=== PATIENT | female | born 1990 | race Two or more races ===

== ENCOUNTER 2018-10-05 10:58 | Emergency (ER) | payer MEDICAID, OTHER ==
[~2018-10-05] VITALS: Ht 167.6 cm; Wt 81.6 kg
[2018-10-05 11:11] VITALS: BP 137/84
[2018-10-05] MEDS ORDERED: SILVER SULFADIAZINE 1 % TOPICAL CREAM 50GM TOP ONE (11:30)
[2018-10-05] MEDS ORDERED: ACETAMINOPHEN 325 MG TAB PO ONE (11:30)
== END 2018-10-05 11:50 | disposition home or self-care (01) ==
LOC: ER 10:58
DX: T22.111A Burn of first degree of right forearm, initial encounter (principal); X11.8XXA Contact with other hot tap-water, initial encounter; Y93.89 Activity, other specified; Y92.89 Other specified places as the place of occurrence of the external cause; Y99.8 Other external cause status
CPT/HCPCS: 16000

== ENCOUNTER 2021-05-25 12:37 | Emergency (ER) | payer MEDICAID ==
[~2021-05-25] VITALS: Ht 167.6 cm; Wt 70.3 kg
[2021-05-25 17:39] VITALS: BP 118/74
[2021-05-25] MEDS ORDERED: cefTRIAXone SOD 1,000 MG VL IM ONE (18:00)
[2021-05-25] MEDS ORDERED: methylPREDNISolone SOD SUCC 125 MG/2 ML VL IM ONE (18:00)
== END 2021-05-25 18:27 | disposition home or self-care (01) ==
LOC: ER 12:37
DX: J02.9 Acute pharyngitis, unspecified (principal); H66.92 Otitis media, unspecified, left ear; Z32.02 Encounter for pregnancy test, result negative; Z20.822 Contact with and (suspected) exposure to COVID-19
CPT/HCPCS: 36415; 81025; 87426; 96372; 99284; J0696; J2930

== ENCOUNTER 2022-05-01 21:24 | Emergency (ER) | payer MEDICAID ==
[~2022-05-01] VITALS: Ht 167.6 cm; Wt 72.7 kg
[2022-05-01 21:56] VITALS: BP 131/85
[2022-05-01 22:23] LABS: Urine Bacteria MANY /hpf (None Seen); Urine Blood 1+ /uL (Negative); Urine Mucus FEW (None Seen); Urine Specific Gravity 1.014 (1.001-1.035); Urine WBC 804 /hpf (0 - 5); Urine WBC Clumps PRESENT /hpf (None Seen)
[2022-05-02] MEDS ORDERED: CEPH-510 PO (01:55)
== END 2022-05-02 01:03 | disposition home or self-care (01) ==
LOC: ER 21:29
DX: N39.0 Urinary tract infection, site not specified (principal); R11.2 Nausea with vomiting, unspecified; R42 Dizziness and giddiness
CPT/HCPCS: 81001; 81025

== ENCOUNTER 2023-04-29 19:43 | Emergency (ER) | payer MEDICAID ==
[~2023-04-29] VITALS: Ht 167.6 cm; Wt 72.0 kg
[~2023-04-29 19:43] MED LIST: CEPH-510 PO
[2023-04-29 20:30] VITALS: O2SAT 100
[2023-04-29] MEDS ORDERED: SODIUM CHLORIDE 0.9% 1,000 ML IV ONE (20:30)
[2023-04-29] MEDS ORDERED: ALBUMIN 25% 100 ML IV ONE (20:30)
[2023-04-29] MEDS ORDERED: ONDANSETRON HCL 4 MG/2 ML VIAL IV ONE (20:30)
[2023-04-29] MEDS ORDERED: SODIUM CHLORIDE 0.9% 500 ML IV ONE (20:30)
[2023-04-29 20:40] LABS: Basophils # (auto) 0.1 10 ^3/uL (0-0.2); Basophils % (auto) 0.4 % (0.0-2.0); Eosinophils # (auto) 0.1 10 ^3/uL (0-0.8); Eosinophils % (auto) 0.6 % (0.0-7.0); Hematocrit 36.9 % (36.0-46.0); Hemoglobin 11.9 g/dL (12.2-16.2); Lymphocytes # (auto) 2.6 10 ^3/uL (0.4-5.4); Lymphocytes % (auto) 18.9 % (10.0-50.0); Mean Corpuscular Hemoglobin 28.5 pg (28.0-32.0); Mean Corpuscular Hgb Conc. 32.4 g/dL (32.0-36.0); Mean Corpuscular Volume 88.2 fL (80.0-100.0); Monocytes # (auto) 0.7 10 ^3/uL (0-1.3); Monocytes % (auto) 4.7 % (0.0-12.0); Neutrophils # (auto) 10.6 10 ^3/uL (1.6-8.6); Neutrophils % (auto) 75.4 % (37.0-80.0); Nucleated Red Blood Cells % 0.1 %; Red Blood Cells 4.18 10^6/uL (4.0-5.20); Red Cell Distribution Width 13.1 % (11.8-14.3)
[2023-04-29] MEDS ORDERED: fentaNYL CITRATE 100 MCG/2 ML VL IV ONE ×2 (21:00)
[2023-04-29 21:07] LABS: INR 1.08 (0.9-1.15); Prothrombin Time 11.3 sec (9.3-11.8)
[2023-04-29 21:09] LABS: Alanine Aminotransferase 21 U/L (7-40); Albumin 4.4 g/dL (3.2-4.8); Alkaline Phosphatase 68 U/L (46-116); Anion Gap 11 (5-15); Aspartate Aminotransferase 25 U/L (13-40); BUN/Creatinine Ratio 8.2 (10.0-20.0); Bilirubin, Total 0.3 mg/dL (0.2-1.0); Blood Urea Nitrogen 6 mg/dL (9-23); Calcium 9.4 mg/dL (8.5-10.1); Carbon Dioxide 21 mmol/L (20-30); Chloride 108 mmol/L (98-107); Glucose 124 mg/dL (74-106); Potassium 3.3 mmol/L (3.5-5.1); Sodium 140 mmol/L (136-145); Total Protein 6.8 g/dL (5.7-8.2)
[2023-04-29 22:47] LABS: Urine WBC None Seen /hpf (0 - 5)
[2023-04-29 23:13] LABS: Urine Bacteria NONE SEEN /hpf (None Seen); Urine Blood 3+ /uL (Negative); Urine Clarity CLOUDY (Clear); Urine Color Red (Yellow); Urine Protein, UAD 2+ (Negative)
[2023-04-29] MEDS ORDERED: POTASSIUM CHL 20 Meq TABLET PO ONE (23:15)
[2023-04-29 23:34] LABS: Urine Specific Gravity 1.025 (1.001-1.035)
[2023-04-30 04:30] VITALS: BP 115/65; PULSE 75; RESP 16; O2SAT 100
== END 2023-04-30 05:39 | disposition home or self-care (01) ==
LOC: ER 19:43
DX: O03.9 Complete or unspecified spontaneous abortion without complication (principal); R10.2 Pelvic and perineal pain; O26.51 Maternal hypotension syndrome, first trimester; O26.891 Other specified pregnancy related conditions, first trimester; D72.829 Elevated white blood cell count, unspecified; F41.9 Anxiety disorder, unspecified; Z3A.10 10 weeks gestation of pregnancy; Z79.899 Other long term (current) drug therapy
CPT/HCPCS: 36415; 71045; 76801; 80053; 81001; 83605; 83735; 83880; 84443; 84484; 84702; 85025; 85379; 85610; 85730; 86850; 86900; 86901; 87040; 93005; 96361; 96365; 96375; 96376; 99285; J2405; J3010; J7030; P9047

== ENCOUNTER 2024-10-04 12:28 | Observation (INO) | payer MEDICAID ==
[2024-10-04] MEDS ORDERED: PREN-96 PO (13:45)
--- NOTE | 2024-10-04 13:53 | DVH ---
BIOPHYSICAL PROFILE HISTORY: fall TECHNIQUE: Multiple transabdominal real-time grayscale sonographic images through the gravid uterus of the fetus with duplex Doppler color flow and M-mode spectral analysis FINDINGS: BIOPHYSICAL PROFILE: breathing score: 2 movement score: 2 tone score: 2 Quantitative CHING score: 2 (CHING: 19 Cm.) Total score: 8 The cervix WAS NOT SEEN Single live fetus in CEPHALIC presentation. heart rate 148 beats per minute. Grade II posterior placenta without previa or abruption IMPRESSION: Biophysical profile score: 8/8
--- NOTE | 2024-10-05 08:21 | DVHDS2 ---
Physician Discharge Progress N Final Diagnosis: s/p fall 36wks Operations or Procedures: Operations or Procedures nst,sono Condition on Discharge: Good Disposition: Home Discharge Instructions: Diet: Consistent carbohydrate Activity: No Restrictions, As Tolerated Medications: na Follow Up Care: Specialist: 1d Discharge Statement: "Patient was advised to return to the ER or call 911 if any headaches, dizziness, shortness of breath, chest pain, abdominal pain, bleeding, fevers, or worsening of medical condition. Patient was counseled about treatment plan, medications, possible side effects, patientverbalized understanding. All questions were answered to the best of my ability. This discharge took greater then 30 minutes in planning, reviewing docume ntation, counseling the patient, and discussing with other team members." Visit Coding OBGYN Date of Service: Oct 04, 2024 Billing Provider: SABINA LYNNE DO [employer] Common Visit Codes: 69147-[id number] OBS CARE (HIGH) CARD [employer]ANGER Procedure Codes: 27537-62- NON-STRESS TEST SABINA LYNNE DO Oct 05, 2024 08:21
== END 2024-10-04 15:25 | disposition home or self-care (01) ==
LOC: LDRP 12:28
PROVIDERS: ADMIT Obstetrics & Gynecology; ATTEND Obstetrics & Gynecology
DX: O9A.213 Injury, poisoning and certain other consequences of external causes complicating pregnancy, third trimester (principal); S30.1XXA Contusion of abdominal wall, initial encounter; O62.9 Abnormality of forces of labor, unspecified; O99.891 Other specified diseases and conditions complicating pregnancy; M54.9 Dorsalgia, unspecified; W01.0XXA Fall on same level from slipping, tripping and stumbling without subsequent striking against object, initial encounter; Y93.89 Activity, other specified; Y92.89 Other specified places as the place of occurrence of the external cause; Y99.8 Other external cause status; Z3A.36 36 weeks gestation of pregnancy; Z79.899 Other long term (current) drug therapy
CPT/HCPCS: 59025; 76805; 76819; 81002; 94760; G0378